=== PATIENT | male | born 1965 | race Caucasian/White ===

== ENCOUNTER 2017-05-12 14:22 | Inpatient (IN) | payer OTHER ==
[~2017-05-12] VITALS: Ht 195.6 cm; Wt 131.5 kg
[2017-05-12] VITALS (13 sets, daily range): BP systolic 71–163
--- NOTE | 2017-05-12 14:22 | NUR ---
BIB [address] from [facility] room. Placed in room 01. Placed on compliance monitor, blood pressure machine and pulse oximeter. To gown for exam. Side rails up. Report given to DONITA Holley. Dr. Dutton at bedside Addendum: 05/12/17 at 1453 by [email or web address] report given to DONITA Holguin
--- NOTE | 2017-05-12 14:25 | NUR ---
Patient comes in via als complaining of generalized abdominal pain starting 2 hours . Pain 10/10, sharp. Patient is unable to hold still, irritable and diaphoretic. Patient denies diarrhea but having nausea and vomiting. Patient is afebrile. PAtient arrives with a 20 guage Angio in left hand. No signs of inflitration noted. Patient place on painter helper. 20 guage IV placed in right AC. Patient is hypotensive prior to arrival and tachycardiac. No other complaints/injuries per patient or as noted. WIll continue to monitor
--- NOTE | 2017-05-12 14:25 | NUR ---
Note undone in EDM - 05/12/17 at 1458 by [email or web address] Patient comes in via als complaining of generalized abdominal pain starting 2 hours . Pain 10/10, sharp. Patient is unable to hold still, irritable and diaphoretic. Patient denies any N/V/D. Patient is afebrile. PAtient arrives with a 20 guage Angio in left hand. No signs of inflitration noted. Patient place on radiation monitor. 20 guage IV placed in right AC. Patient is hypotensive prior to arrival and tachycardiac. No other complaints/injuries per patient or as noted. WIll continue to monitor.
[2017-05-12] MEDS ORDERED: PIPERACILLIN/TAZO 3.38 GM in NS 50 ML IV ONE (14:30)
[2017-05-12] MEDS ORDERED: DIPHENHYDRAMINE INJ 50 MG/ML VIAL IVP ONE (14:30)
[2017-05-12] MEDS ORDERED: MORPHINE 4 MG/ML INJ. SYRINGE IVP ONE ×2 (14:30→15:30)
--- NOTE | 2017-05-12 14:30 | NUR ---
Patient brought to CT scan accompanied by myself . Placed on radiographer cardiac catheterization.
[2017-05-12] MEDS ORDERED: MORPHINE 2 MG/ML INJ. SYRINGE ONE (14:34)
--- NOTE | 2017-05-12 14:34 | NUR ---
EKG performed at by DONITA Duque. Physician given copy of EKG for review.
--- NOTE | 2017-05-12 14:36 | NUR ---
Back from CT via [place]
[2017-05-12] MEDS ORDERED: PIPERACILLIN/TAZOBACTAM 3.375 GM/VIAL (ZOSYN) IV ONE (14:44)
[2017-05-12] MEDS ORDERED: [UNRECOGNIZED DRUG - OTHER] (14:50)
[2017-05-12] MEDS ORDERED: PRED2.5T4 PO (14:50)
--- NOTE | 2017-05-12 14:55 | NUR ---
Patient prepped for surgery. Patient for surgeon to speak to patient and sign consents. Belongings done. Inpatient surgical checklist completed in chart.
[2017-05-12] MEDS ORDERED: NACL 0.9% 1,000 ML IV ONE ×3 (15:00→19:23)
[2017-05-12 15:04] LABS: HEMATOCRIT 38.9 % (36-54); HEMOGLOBIN 12.4 g/dL (14.0-18.0); MEAN CORPUSCULAR HEMOGLOBIN 24 pg (27-31); MEAN CORPUSCULAR HGB CONC 32 % (32-36); MEAN CORPUSCULAR VOLUME 75 fL (79.0-98.0); PLATELET COUNT (AUTO) 321 K/uL (130-430); RED BLOOD CELL COUNT(AUTO) 5.18 MIL/uL (4.2-6.2)
[2017-05-12 15:06] LABS: INR 1.1 (0.80-1.20); PROTHROMBIN TIME 10.7 SECS (9.5-12.5)
[2017-05-12 15:07] LABS: CALCIUM 9.6 mg/dL (8.4-11.0); CREATININE 1.75 mg/dL (0.55-1.30)
[2017-05-12 15:09] LABS: WHITE BLOOD COUNT (AUTO) 2.2 K/uL (4.8-10.8)
[2017-05-12 15:16] LABS: BILIRUBIN,URINE NEGATIVE (NEGATIVE); BLOOD, URINE 1+ (NEGATIVE); CLARITY/URINE CLEAR (CLEAR); COLOR,URINE YELLOW (YELLOW); GLUCOSE,URINE NEGATIVE (NEGATIVE); KETONES,URINE NEGATIVE (NEGATIVE); LEUKOCYTE ESTERASE ,URINE NEGATIVE (NEGATIVE); NITRITE, URINE NEGATIVE (NEGATIVE); PROTEIN URINE NEGATIVE (NEGATIVE); UROBILINOGEN,URINE 0.2 (0.2-1.0)
[2017-05-12 15:17] LABS: BACTERIA,URINE FEW /HPF (None Seen); HYALINE CASTS, URINE 0-10 /LPF (None Seen); WBC,URINE 0-3 /HPF (0-3)
[2017-05-12 15:18] LABS: MUCUS,URINE 2+ /LPF (None Seen)
[2017-05-12 15:23] LABS: ALBUMIN 2.9 g/dL (3.4-4.8); TOTAL BILIRUBIN 1.1 mg/dL (0.0-1.0)
[2017-05-12 15:28] LABS: BAND % (MANUAL) 16 % (0-6); BASOPHILS % (MANUAL) 0 % (0-2); EOSINOPHILS % (MANUAL) 0 % (0-7); LYMPHOCYTES % (MANUAL) 15 % (20-46); MONOCYTES % (MANUAL) 11 % (0-11)
[2017-05-12] MEDS ORDERED: POTASSIUM CHLORIDE 20 MEQ in NS 250 ML IV ONE ×4 (15:30)
[2017-05-12 15:31] LABS: POTASSIUM 2.9 mmol/L (3.5-5.1)
[2017-05-12] MEDS ORDERED: MORPHINE SULFATE 10 MG/ML VIAL ONE (15:36)
--- NOTE | 2017-05-12 15:37 | NUR ---
Dr. Tristan at bedside explaining procedure to patient. All questions answered by MD. Patient signed consent. Placed in chart
[2017-05-12] MEDS ORDERED: KCL 20 mEq in 100 mL (PREMIX) 100 ML IV ONE ×2 (15:38→15:47)
--- NOTE | 2017-05-12 15:38 | NUR ---
Anesthesiologist at bedside. All questions answered. Consent signed.
--- NOTE | 2017-05-12 15:38 | NUR ---
Lorenza broderick in [facility] - 05/12/17 at 1605 by [email or web address] Patient transferred to OR for surgery of exploratiory laparotomy with possible bowel resection possible ostomy
--- NOTE | 2017-05-12 15:40 | NUR ---
Patient transferred to OR for surgery of exploratiory laparotomy with possible bowel resection possible ostomy
[2017-05-12] MEDS ORDERED: LR 1,000 ML IV.SOLN IV ONE (15:55)
[2017-05-12] MEDS ORDERED: MIDAZOLAM HCL 5 MG/5 ML VIAL IVP ONE (15:55)
[2017-05-12] MEDS ORDERED: MEPERIDINE HCL/PF 100 MG/ML AMP IM ONE (15:55)
[2017-05-12] MEDS ORDERED: SEVOFLURANE 15 MIN GAS INH ONE (15:55)
[2017-05-12] MEDS ORDERED: fentaNYL CITRATE/PF 100 MCG/2 ML AMP IVP ONE (15:55)
[2017-05-12] MEDS ORDERED: ROCURONIUM BROMIDE 10 MG/ML (ZEMURON) IV ONE (15:55)
[2017-05-12] MEDS ORDERED: PROPOFOL 200MG/ 20ML VIAL (DIPRIVAN) IV ONE (15:55)
[2017-05-12] MEDS ORDERED: NS IRRIG SOLN 1000 ML IR ONE (15:55)
--- NOTE | 2017-05-12 15:58 | NUR ---
Lorenza broderick in [facility] - 05/12/17 at 1606 by [email or web address] Anesthesiologist at bedside. All questions answered. Consent signed.
[2017-05-12] MEDS ORDERED: LR 1,000 ML IV SCH (17:43)
[2017-05-12] MEDS ORDERED: metroNIDAZOLE 500 mg/NS 100 ML IV SCH (17:45)
[2017-05-12] MEDS ORDERED: HYDROmorphone 1 MG INJ. 1 MG/ML AMPUL IVP PRN ×2 (17:45→18:00)
[2017-05-12] MEDS ORDERED: LEVOFLOXACIN 500 MG/D5W 100 ML IV ONE ×2 (17:45→19:30)
--- NOTE | 2017-05-12 17:55 | NUR ---
REPORT GIVEN TO ANTONIETA RN BY ANESTHESIOLOGIST AT BEDSIDE. PTS VENT SETTINGS AC 15/550/100% P5 BY ANESTHESIOLOGIST. CONFIDENTIAL INVESTIGATOR AT BEDSIDE TO RECOVER PT. MONITOR ST 140'S AND SBP 130'S.
[2017-05-12] MEDS ORDERED: ONDANSETRON HCL 4 MG/2 ML VIAL IVP PRN ×2 (18:00→19:45)
[2017-05-12] MEDS ORDERED: LR 1,000 ML IV ONE (18:00)
[2017-05-12] MEDS ORDERED: HYDROmorphone 2 MG/ML VIAL ONE (18:07)
--- NOTE | 2017-05-12 18:25 | NUR ---
RESTRAINTS APPLIED TO PREVENT PT FROM PULLING OUT ET. PICC LINE NURSE AT BEDSIDE.
--- NOTE | 2017-05-12 18:35 | NUR ---
CALL OUT TO DR VIDES FOR VENT MANAGEMENT ORDERS.
--- NOTE | 2017-05-12 18:40 | NUR ---
SPOKE WITH DR VIDES AND ORDERS RECEIVED. NS FIRST LITER BOLUS STARTED.
[2017-05-12 18:45] LABS: BASOPHILS % (AUTO) 0.1 % (0.0-2.0); EOSINOPHILS % (AUTO) 0.9 % (0.0-4.0); HEMATOCRIT 23.5 % (36-54); HEMOGLOBIN 7.4 g/dL (14.0-18.0); LYMPHOCYTES # (AUTO) 0.1 K/uL (1.0-5.5); LYMPHOCYTES % (AUTO) 11.7 % (20.5-51.5); MEAN CORPUSCULAR HEMOGLOBIN 24 pg (27-31); MEAN CORPUSCULAR HGB CONC 32 % (32-36); MEAN CORPUSCULAR VOLUME 76 fL (79.0-98.0); MONOCYTES # (AUTO) 0.1 K/uL (0.0-1.0); MONOCYTES % (AUTO) 9.9 % (1.7-9.3); NEUTROPHILS % (AUTO) 77.4 % (40.0-70.0); PLATELET COUNT (AUTO) 135 K/uL (130-430)
[2017-05-12 18:51] LABS: CALCIUM 8.5 mg/dL (8.4-11.0); CREATININE 1.45 mg/dL (0.55-1.30); POTASSIUM 3.3 mmol/L (3.5-5.1)
--- NOTE | 2017-05-12 19:00 | NUR ---
Endorsement Pt still tachycardic, BP WNL. Bilateral wrist restraints in place as ordered. Report endorsed to PM nurse at bedside.
--- NOTE | 2017-05-12 19:13 | NUR ---
DR VIDES IN TO SEE PT.
[2017-05-12] MEDS ORDERED: HYDROmorphone 2 MG/ML VIAL IVP ONE (19:15)
--- NOTE | 2017-05-12 19:21 | NUR ---
CONSULT DR LAMAS CALLED AND SPOKE TO ATTILA WITH EXCHANGE .
[2017-05-12 19:29] LABS: WHITE BLOOD COUNT (AUTO) 1.3 K/uL (4.8-10.8)
[2017-05-12] MEDS ORDERED: LORazepam 2 MG/ML VIAL IVP PRN (19:30)
[2017-05-12] MEDS ORDERED: D5LR 1,000 ML IV SCH (19:30)
[2017-05-12] MEDS ORDERED: metroNIDAZOLE 500 mg/NS 200 ML IV ONE (19:30)
[2017-05-12] MEDS ORDERED: LORazepam 2 MG/ML VIAL IM ONE (19:30)
[2017-05-12] MEDS ORDERED: *TPN PER PHARMACY XX PRN (19:30)
[2017-05-12] MEDS ORDERED: INSULIN REGULAR, HUMAN 100 UNITS/ML, 10 ML VIAL (novoLIN R) SUBCUT PRN (19:30)
[2017-05-12] MEDS ORDERED: DEXTROSE 50% JECT 50 ML DISP.SYRIN IVP PRN (19:30)
[2017-05-12] MEDS ORDERED: IPRATROPIUM/ALBUTEROL SULFATE 3 ML AMPUL.NEB INH PRN (19:30)
--- NOTE | 2017-05-12 19:30 | NUR ---
SPOKE WITH DR LAMAS AND REPORTED ABGS. ORDERS LEFT FOR VENT CHANGES AND RT AWARE AND AT BEDSIDE AND PLACED ON AC 18 AND PEEP 8. WILL CONTINUE TO MONITOR.
[2017-05-12] MEDS ORDERED: PROPOFOL DRIP 100 ML IV ONE (19:37)
--- NOTE | 2017-05-12 19:39 | NUR ---
DIPRIVAN STARTED BY PROTOTYPE TECHNICIAN RN DUE TO TACHYPNEA AND 02 SATS 84%. PICC LINE PULLED BACK BY PICC LINE RN.
[2017-05-12] MEDS ORDERED: HYDROCORTISONE SOD SUCC 100 MG/2 ML VIAL IVP ONE (19:45)
[2017-05-12] MEDS: PROPOFOL DRIP 100 ML IV PRN ×2 (19:45→23:22)
[2017-05-12] MEDS ORDERED: MORPHINE 4 MG/ML INJ. SYRINGE IVP PRN (19:45)
[2017-05-12] MEDS ORDERED: LORazepam 2 MG/ML VIAL ONE (19:50)
[2017-05-12] MEDS ORDERED: HYDROCORTISONE SOD SUCC 100 MG/2 ML VIAL ONE (19:55)
--- NOTE | 2017-05-12 20:00 | NUR ---
ASSESSMENT Pt sedated, Orally intubated, having some breathing difficulties. Dr Rosen here evaluating Pt. Oral gastric tube present clamped. Midline abdominal dressing present, dry & intact. Luis Vieira present Mid lower abdomen, draining old blood color drainage. Velez cath present draining small amount of dark kilo urine.
[2017-05-12] MEDS ORDERED: SODIUM BICARBONATE 8.4% JECT 50 MEQ/50 ML SYRINGE ONE ×3 (20:06→20:31)
[2017-05-12] MEDS ORDERED: NOREPINEPHRINE 4 MG/4 ML VIAL IV ONE ×2 (20:20→23:42)
[2017-05-12] MEDS: NOREPINEPHRINE BITARTRATE 4 MG in D5W 246 ML IV PRN ×2 (20:29→23:45)
[2017-05-12] MEDS: metroNIDAZOLE 500 mg/NS 100 ML IV SCH (20:30)
[2017-05-12 20:51] LABS: BASOPHILS % (AUTO) 0.1 % (0.0-2.0); EOSINOPHILS % (AUTO) 0.9 % (0.0-4.0); HEMATOCRIT 23.9 % (36-54); HEMOGLOBIN 7.5 g/dL (14.0-18.0); LYMPHOCYTES # (AUTO) 0.1 K/uL (1.0-5.5); LYMPHOCYTES % (AUTO) 13.5 % (20.5-51.5); MEAN CORPUSCULAR HEMOGLOBIN 24 pg (27-31); MEAN CORPUSCULAR HGB CONC 31 % (32-36); MEAN CORPUSCULAR VOLUME 75 fL (79.0-98.0); MONOCYTES # (AUTO) 0.1 K/uL (0.0-1.0); MONOCYTES % (AUTO) 12.8 % (1.7-9.3); NEUTROPHILS % (AUTO) 72.7 % (40.0-70.0); PLATELET COUNT (AUTO) 142 K/uL (130-430); RED BLOOD CELL COUNT(AUTO) 3.18 MIL/uL (4.2-6.2); RED CELL DISTRIBUTION WIDTH 18.7 % (9.0-15.0)
[2017-05-12 20:58] LABS: NEUTROPHILS # (AUTO) 0.9 K/uL (1.8-7.7); WHITE BLOOD COUNT (AUTO) 1.1 K/uL (4.8-10.8)
[2017-05-12] MEDS ORDERED: PANTOPRAZOLE SODIUM 40 MG/VIAL (PROTONIX) IVP SCH (21:00)
[2017-05-12 21:01] LABS: ANION GAP 11 (5-15); CHLORIDE 118 mmol/L (98-107); CREATININE 1.52 mg/dL (0.55-1.30); GLUCOSE 101 mg/dL (70-99); SODIUM SERUM 150 mmol/L (136-145); UREA NITROGEN, BLOOD 15 mg/dL (8-21)
--- NOTE | 2017-05-12 21:15 | NUR ---
[facility] First unit # [id number] started, V/S taken, no reaction noted.
[2017-05-12 21:22] LABS: PHOSPHORUS 2.2 mg/dL (2.7-4.5)
[2017-05-12 21:26] LABS: GFR AFRICAN AMERICAN 62 mL/min (>90)
[2017-05-12] MEDS ORDERED: MAGNESIUM SULFATE 4 GM in D5W 250 ML IV ONE (21:45)
[2017-05-12] MEDS ORDERED: CALCIUM GLUCONATE 1 GM/10 ML VIAL IV ONE (21:45)
[2017-05-12] MEDS ORDERED: KCL 40 mEq in 100 mL (PREMIX) 100 ML IV ONE (21:53)
[2017-05-12] MEDS ORDERED: CALCIUM GLUCONATE 1 GM/10 ML VIAL ONE (21:59)
[2017-05-12] MEDS ORDERED: MAGNESIUM SULFATE 1 GM/2 ML VIAL ONE ×2 (22:00→22:01)
[2017-05-12] MEDS: LR 1,000 ML IV SCH (22:35)
[2017-05-12] MEDS ORDERED: PHENYLEPHRINE HCL 10 MG/ML VIAL (NEOSYNEPHRINE) ONE (23:11)
[2017-05-12] MEDS: IPRATROPIUM/ALBUTEROL SULFATE 3 ML AMPUL.NEB INH SCH (23:25)
--- NOTE | 2017-05-12 23:25 | NUR ---
[facility] First unit completed,no reaction noted. Second unit # [id number] started, V/S taken, no reaction noted.
[2017-05-12] MEDS ORDERED: PHENYLEPHRINE HCL 30 MG in NS 247 ML IV PRN (23:30)
[2017-05-13] VITALS (17 sets, daily range): BP systolic 69–257
[2017-05-13] MEDS: KCL 40 mEq in 100 mL (PREMIX) 100 ML IV SCH ×3 (00:49→05:24)
[2017-05-13] MEDS: HYDROCORTISONE SOD SUCC 100 MG/2 ML VIAL IVP SCH ×2 (00:54→05:49)
[2017-05-13] MEDS ORDERED: PHENYLEPHRINE HCL 10 MG/ML VIAL (NEOSYNEPHRINE) ONE ×4 (01:05→07:47)
--- NOTE | 2017-05-13 01:15 | NUR ---
[facility] Second unit complete. V/S taken no reaction note.
[2017-05-13] MEDS ORDERED: NOREPINEPHRINE 4 MG/4 ML VIAL IV ONE (01:17)
[2017-05-13] MEDS: NS IV PRN ×3 (01:21→08:13)
[2017-05-13] MEDS: PHENYLEPHRINE HCL IV PRN ×3 (01:21→08:13)
[2017-05-13] MEDS: LR 1,000 ML IV SCH ×4 (01:34→09:07)
[2017-05-13] MEDS: PROPOFOL DRIP 100 ML IV PRN ×3 (01:40→10:01)
--- NOTE | 2017-05-13 01:45 | NUR ---
DR ADAMS Landeros notified regarding ABG results, orders received. 1. Give one amp of Sodium Bicarb now.
[2017-05-13] MEDS ORDERED: SODIUM BICARBONATE 8.4% JECT 50 MEQ/50 ML SYRINGE IVP ONE ×4 (02:00→11:44)
[2017-05-13] MEDS: NOREPINEPHRINE BITARTRATE 8 MG in D5W 242 ML IV PRN ×2 (02:39→08:21)
[2017-05-13] MEDS: IPRATROPIUM/ALBUTEROL SULFATE 3 ML AMPUL.NEB INH SCH ×2 (04:03→07:13)
[2017-05-13] MEDS ORDERED: KCL 40 mEq in 100 mL (PREMIX) 100 ML IV ONE (05:02)
[2017-05-13] MEDS: metroNIDAZOLE 500 mg/NS 100 ML IV SCH (05:52)
[2017-05-13] MEDS ORDERED: HYDROCORTISONE SOD SUCC 100 MG/2 ML VIAL IVP SCH (06:00)
--- NOTE | 2017-05-13 06:00 | NUR ---
ASSESSMENT Pt sedated, orally intubated. 2 Pressors in use to support BP and IV fluid infusing @ 500ml/hr. BP still unstable. No urine output from midnight to 0600. JOSÉ drainage decreasing. OGT to low intermit suction.
[2017-05-13 06:27] LABS: HEMATOCRIT 37.2 % (36-54); HEMOGLOBIN 11.5 g/dL (14.0-18.0); MEAN CORPUSCULAR HEMOGLOBIN 24 pg (27-31); MEAN CORPUSCULAR HGB CONC 31 % (32-36); MEAN CORPUSCULAR VOLUME 78 fL (79.0-98.0); PLATELET COUNT (AUTO) 164 K/uL (130-430); RED BLOOD CELL COUNT(AUTO) 4.76 MIL/uL (4.2-6.2); RED CELL DISTRIBUTION WIDTH 20.4 % (9.0-15.0); WHITE BLOOD COUNT (AUTO) 5.1 K/uL (4.8-10.8)
--- NOTE | 2017-05-13 07:08 | NUR ---
ID Consultation Paged Reason for consultation: Peritonitis Was consult called: Yes Person who was notified: Corinne Consulting Physician: Dr Porter Creative Strategist Specialty: Infectious Disease Creative Strategist Ordered By: Dr Rosen
[2017-05-13 07:16] LABS: CALCIUM 7.2 mg/dL (8.4-11.0); CREATININE 3.72 mg/dL (0.55-1.30); POTASSIUM 4.6 mmol/L (3.5-5.1)
[2017-05-13 07:39] LABS: ALBUMIN 1.4 g/dL (3.4-4.8); FREE T4 (FREE THYROXINE) 1.8 ng/dl (0.8-1.5); PHOSPHORUS 5.9 mg/dL (2.7-4.5); TOTAL BILIRUBIN 2.5 mg/dL (0.0-1.0)
--- NOTE | 2017-05-13 08:00 | NUR ---
COIN COLLECTOR PT post-op Day 1, intubated, sedated and restrained. Oral Gastric tube in place, secured, and running at intermittent suction. Midline Sx dressing dry and intact, JOSÉ drain present at mid lower abdomen, functioning properly. Velez Cath in place and secured, no urine present. Catheter was irrigated last shift to rule out a blockage, no output noted. Addendum: 05/13/17 at 1742 by Jesus Manuel Sarabia RN BP 187/77 AND LABILE. DIPRIVAN INFUSING AT 30 MCG/KG/MIN, LEVOPHED @ 30MCG/MIN, NORSYNEPHRINE 360 MCG/MIN. PLAN TO TITRATE PRESSORS DOWN TOLERATED.
[2017-05-13] MEDS ORDERED: ENOXAPARIN SODIUM 40 MG/0.4 ML SYRINGE SUBCUT SCH (09:00)
--- NOTE | 2017-05-13 09:12 | NUR ---
DR. VIDES UPDATED CONTACTED DR. VIDES AND REPORTED BP IS LABILE ON IV DRIPS INFUSING ORDERED. MD TO SEE PATIENT SHORTLY.
[2017-05-13] MEDS ORDERED: FUROSEMIDE 40 MG/4 ML VIAL ONE (09:36)
[2017-05-13] MEDS ORDERED: FUROSEMIDE 40 MG/4 ML VIAL IVP ONE (09:45)
[2017-05-13] MEDS ORDERED: HYDROCORTISONE SOD SUCC 100 MG/2 ML VIAL ONE (10:23)
[2017-05-13] MEDS ORDERED: HYDROmorphone 2 MG/ML VIAL IVP PRN (10:30)
[2017-05-13] MEDS ORDERED: HYDROCORTISONE SOD SUCC 100 MG/2 ML VIAL IVP ONE (10:30)
[2017-05-13] MEDS ORDERED: metroNIDAZOLE 500 mg/NS 100 ML IV SCH (10:30)
--- NOTE | 2017-05-13 10:30 | NUR ---
CYNTHIA BLUE BP AND HR DECREASED, SPO2 DECREASED TO 86 DURING ASSESSMENT, CYANOSIS NOTED. NOREPINEPHRINE INFUSING AT 320 MCG/MIN PER PROTOCOL, WITNESSED ASYSTOLE, CALLED A CODE AND BEGAN COMPRESSIONS AT 1032. CODE TEAM ARRIVED AND PT RESUSCITATED AT 1040. Addendum: 05/13/17 at 1710 by Jesus Manuel Sarabia RN ROSC ACHEIVED
--- NOTE | 2017-05-13 10:50 | NUR ---
FAMILY NOTIFIED OF CODE UPDATED PT'S BROTHER, BRIGHT, ON PHONE. HE STATED PT'S IS ON HER WAY FROM [place].
[2017-05-13] MEDS ORDERED: MORPHINE SULFATE 10 MG/ML VIAL IVP PRN (11:00)
[2017-05-13] MEDS ORDERED: FUROSEMIDE 100 MG in D5W 90 ML IV SCH (11:00)
[2017-05-13 11:03] LABS: HEMATOCRIT 39.3 % (36-54); MEAN CORPUSCULAR HEMOGLOBIN 25 pg (27-31); MEAN CORPUSCULAR HGB CONC 31 % (32-36); MEAN CORPUSCULAR VOLUME 81 fL (79.0-98.0); PLATELET COUNT (AUTO) 126 K/uL (130-430); RED BLOOD CELL COUNT(AUTO) 4.86 MIL/uL (4.2-6.2); RED CELL DISTRIBUTION WIDTH 20.1 % (9.0-15.0); WHITE BLOOD COUNT (AUTO) 17.6 K/uL (4.8-10.8)
--- NOTE | 2017-05-13 11:05 | NUR ---
CYNTHIA PALMER PT'S HR 110 AND SUDDENLY DROPPED TO 60, THEN 30. MONITOR THEN SHOWED ASYSTOLE WITH NO PULSE, SECOND CYNTHIA PALMER CALLED, CPR STARTED IMMEDIATELY. DR. VIDES AT BEDSIDE. SEE CYNTHIA PALMER SHEET. Addendum: 05/13/17 at 1710 by Jesus Manuel Sarabia RN ROSC ACHIEVED
[2017-05-13 11:15] LABS: CALCIUM 7.7 mg/dL (8.4-11.0); CREATININE 4.5 mg/dL (0.55-1.30); POTASSIUM 5.4 mmol/L (3.5-5.1)
[2017-05-13 11:20] LABS: ALBUMIN 1.5 g/dL (3.4-4.8); PHOSPHORUS 7.9 mg/dL (2.7-4.5); TOTAL BILIRUBIN 2.4 mg/dL (0.0-1.0)
--- NOTE | 2017-05-13 11:25 | NUR ---
CYNTHIA PALMER PT'S HR DROPPED FROM 130 TO 66, THEN MONITOR SHOWED ASYSTOLE WITH NO PULSE, THIRD CYNTHIA PALMER CALLED, CPR STARTED IMMEDIATELY. DR. VIDES STILL AT BEDSIDE. SEE CYNTHIA PALMER SHEET. ROSC.
[2017-05-13] MEDS ORDERED: EPINEPHrine JECT 2 MG in NS 230 ML IV PRN (11:30)
--- NOTE | 2017-05-13 11:40 | NUR ---
CODE BLUE PT WENT INTO PEA/ASYSTOLE WITH NO PULSE, FOURTH CODE BLUE CALLED, CPR STARTED IMMEDIATELY. DR. VIDES STILL AT BEDSIDE. SEE CODE BLUE SHEET. PT AND PRONOUNCED BY ED DR. ADAMS AT 1145.
[2017-05-13] MEDS ORDERED: EPINEPHrine JECT 1 MG/10 ML SYR IVP ONE (11:44)
[2017-05-13] MEDS ORDERED: ATROPINE SULFATE 1 MG/10 ML SYRINGE IVP ONE (11:44)
[2017-05-13] MEDS ORDERED: PIPERACILLIN/TAZO 2.25G/DEX-IS 50 ML IV SCH (12:00)
[2017-05-13 14:16] LABS: BAND % (MANUAL) 32 % (0-6); BASOPHILS % (MANUAL) 0 % (0-2); CORRECTED WHITE BLOOD COUNT 13.3 K/uL (4.5-11.0); EOSINOPHILS % (MANUAL) 0 % (0-7); LYMPHOCYTES % (MANUAL) 11 % (20-46); METAMYELOCYTES % 1 % (0-0); MONOCYTES % (MANUAL) 8 % (0-11); MYELOCYTES % 3 % (0-0); PROMYELOCYTES % 1 % (0-0)
[2017-05-13 14:27] LABS: BAND % (MANUAL) 28 % (0-6); BASOPHILS % (MANUAL) 0 % (0-2); EOSINOPHILS % (MANUAL) 0 % (0-7); LYMPHOCYTES % (MANUAL) 7 % (20-46); MONOCYTES % (MANUAL) 4 % (0-11)
[2017-05-13 14:28] LABS: CORRECTED WHITE BLOOD COUNT 4.6 K/uL (4.5-11.0)
--- NOTE | 2017-05-13 14:55 | NUR ---
REILLY, PTS BROTHER CALLED BEDSIDE NURSE AND INFORMED HIM THAT THE PTS WILL BE IN TO SEE THE PT AT ANYTIME. HER FLIGHT HAD BEEN DELAYED. REILLY ALREADY AWARE OF PTS . QUESTIONS ANSWERED.
--- NOTE | 2017-05-13 16:15 | NUR ---
PT AT BEDSIDE PT'S AT BEDSIDE AND APPROVED TO HAVE PT TRANSPORTED TO CONTRACTED MORTUARY [facility] UNTIL FURTHER ARRANGEMENTS CAN BE MADE. ALL PT BELONGINGS TAKEN BY , BELONGINGS LIST SIGNED.
--- NOTE | 2017-05-13 16:30 | NUR ---
[facility] CONTACTED [facility] SURGEON CHIEF CONTACTED, THEY AGREED TO CONTACT PT'S AND PLAN TO HIDE INSPECTOR PT WITHIN 90 MINUTES
[2017-05-13] MEDS ORDERED: TPN CENTRAL IV SCH ×8 (18:00)
[2017-05-13] MEDS ORDERED: POTASSIUM ACETATE IV SCH ×8 (18:00)
[2017-05-13] MEDS ORDERED: SODIUM ACETATE IV SCH ×8 (18:00)
[2017-05-13] MEDS ORDERED: [UNRECOGNIZED DRUG - OTHER] IV SCH ×8 (18:00)
[2017-05-13] MEDS ORDERED: LEVOFLOXACIN 500 MG/D5W 100 ML IV SCH (19:30)
== END 2017-05-13 11:45 | disposition expired | DRG 853 ==
LOC: SED 14:22 → SMU 15:40 → SDS 15:43 → SMU 15:58 → SIC 17:55 → SDS 17:55
PROVIDERS: ADMIT Internal Medicine; ATTEND Internal Medicine
PROC: 0BH17EZ Insertion of Endotracheal Airway into Trachea, Via Natural or Artificial Opening (ICD-10-PCS; 2017-05-12)
PROC: 5A1935Z Respiratory Ventilation, Less than 24 Consecutive Hours (ICD-10-PCS; 2017-05-12)
PROC: 30233N1 Transfusion of Nonautologous Red Blood Cells into Peripheral Vein, Percutaneous Approach (ICD-10-PCS; 2017-05-12)
PROC: 02HV33Z Insertion of Infusion Device into Superior Vena Cava, Percutaneous Approach (ICD-10-PCS; 2017-05-12)
PROC: 0DQ80ZZ Repair Small Intestine, Open Approach (ICD-10-PCS; principal; 2017-05-12 15:45)
DX: A41.9 Sepsis, unspecified organism (principal); R65.21 Severe sepsis with septic shock; I46.9 Cardiac arrest, cause unspecified; K63.1 Perforation of intestine (nontraumatic); K56.699 Other intestinal obstruction unspecified as to partial versus complete obstruction; K65.9 Peritonitis, unspecified; N17.9 Acute kidney failure, unspecified; D62 Acute posthemorrhagic anemia; E66.01 Morbid (severe) obesity due to excess calories; E87.6 Hypokalemia; E87.8 Other disorders of electrolyte and fluid balance, not elsewhere classified; Z79.899 Other long term (current) drug therapy; Z72.89 Other problems related to lifestyle; Z68.34 Body mass index [BMI] 34.0-34.9, adult
CPT/HCPCS: 36415; 36600; 71045; 80048; 80053; 80061; 81000-TC; 82803-TC; 82962; 83605; 83690-TC; 83735-TC; 84100-TC; 84439; 84484; 85007; 85025; 85027; 85610-TC; 85730-TC; 86886; 86900; 86901; 86920; 87040-TC; 87186-TC; 93005; 94002; 94003; 94640; 96365; 96366; 96367; 96375; 99285; C9113; J0171; J0461; J0610; J1170; J1200; J1720; J1815; J1940; J1956; J2060; J2175; J2250; J2270; J2370; J2543; J2704; J3010; J3475; J3480; J3490; J7030; J7050; J7060; J7120; P9021